=== PATIENT | female | born 1980 | race Caucasian/White ===

== ENCOUNTER → 2018-05-31 | Day surgery (SDC) | payer OTHER ==
[~2018-05-31] MED LIST: ABILIFY10 MG PO; AMPHETAMINE SAL20 MG PO; BYSTOLIC10 MG PO; CARBAMAZEPINE200 MG PO; FENTANYL CITRATE/PF 100MCG/2 ML INJ ONE; FLUOXETINE HCL20 MG PO; LAMOTRIGINE100 MG PO; LITHIUM CARBON300 M1 PO; MIDAZOLAM HCL 2 MG/2 ML VIAL ONE; NEXIUM OTC PO; PROPOFOL IV EMULSION 10 MG/ML 50 ML VIAL ONE; SERTRALINE HCL100 MG PO
[2018-05-31 19:05] LABS: WBC,FECAL (FECAL LACTOFERRIN) NEGATIVE (NEGATIVE)
--- NOTE | 2018-06-01 00:02 | Operative Report ---
DATE OF PROCEDURE: May 31, 2018 REFERRING PHYSICIAN: Dr. Shayne Lam. PROCEDURES PERFORMED 1. Esophagogastroduodenoscopy with biopsies and esophageal dilatation. 2. Colonoscopy with biopsies. INDICATIONS FOR ESOPHAGOGASTRODUODENOSCOPY: Dysphagia, heartburn, and indigestion. INDICATIONS FOR COLONOSCOPY: Lower abdominal pain, diarrhea, intermittent, chronic. MEDICATION: Patient was done under MAC. Please see anesthesiologist's note. PROCEDURE: With the patient in left lateral decubitus position, flexible fiberoptic Olympus gastroscope was introduced into the esophagus under direct visualization without any difficulty. There was some patchy erythema noted in distal esophagus. The esophagus was then dilated to size 52-Wolof Lim. The scope was then advanced with ease into the stomach traversing a small hiatal hernia. Mucosa overlying the antrum and the body revealed some patchy erythema and mild to moderate edema and biopsies were obtained and sent to stain for H. pylori. Several gastric hyperplastic-appearing polyps in the body of the stomach were noted and some were partially excised with cold biopsy forceps. Pylorus appeared to be of normal contour and shape. It was intubated with ease and the scope was advanced all the way to the 2nd portion of the duodenum. The scope was then withdrawn slowly and biopsies were obtained from the proximal 2nd portion to rule out sprue. Mucosa overlying the duodenal bulb appeared to be within normal limits. The scope was then withdrawn back into the stomach and retroflexed. Mucosa overlying the fundus appeared to be within normal limits. The cardia also appeared to be within normal limits. The scope was then straightened out. The stomach was decompressed. The scope was subsequently withdrawn. Patient tolerated the procedure well. IMPRESSIONS 1. Distal esophagitis, mild. 2. Esophagus dilated to size 52-Wolof Lim. 3. Small hiatal hernia. 4. Gastritis, biopsied. Biopsies sent to stain for Helicobacter pylori. 5. Gastric polyps, body, hyperplastic appearing, some partially excised with the cold biopsy forceps. 6. Rule out sprue. PLAN: Follow up histology. Initiate Protonix 40 mg 1 p.o. q.a.m. a.c. Patient was then turned around. After adequate lubrication of the anal canal, a flexible fiberoptic Olympus colonoscope was inserted into the rectum with ease and advanced all the way to the cecum. The mucosa overlying the cecum appeared to be within normal limits. The ileocecal valve was intubated and the scope was advanced into the terminal ileum. Biopsies were obtained. The scope was then withdrawn back into the colon. It was then withdrawn slowly. Mucosa overlying the ascending and the transverse appeared to be within normal limits. Mild inflammatory changes noted in the left colon. Multiple random biopsies were obtained. The scope was then retroflexed into the distal rectum and small internal hemorrhoids were noted, none of which was actively bleeding. The scope was then straightened out. The scope was subsequently withdrawn after securing an adequate stool specimen that was sent for the appropriate stool studies. Patient tolerated the procedure well. IMPRESSIONS 1. Colitis, mild, left sided. 2. Proctitis, mild. 3. Small internal hemorrhoids, none actively bleeding. PLAN 1. Follow up histology. 2. Follow up stool studies. 3. Initiate Vsl #3 one p.o. daily and Bentyl 10 mg 1 p.o. t.i.d. Job#: [id number] CF cc:SHAYNE LAM DO
[2018-06-01 14:19] LABS: C DIFFICILE TOXIN A&B AMP PROB NEGATIVE (NEGATIVE)
== END | disposition home or self-care (01) ==
LOC: OR 10:30
PROVIDERS: ATTEND Internal Medicine Gastroenterology
DX: K51.50 Left sided colitis without complications (principal); K31.7 Polyp of stomach and duodenum; K29.70 Gastritis, unspecified, without bleeding; K22.2 Esophageal obstruction; K20.9 Esophagitis, unspecified; K21.9 Gastro-esophageal reflux disease without esophagitis; K62.89 Other specified diseases of anus and rectum; K44.9 Diaphragmatic hernia without obstruction or gangrene; K64.8 Other hemorrhoids; I47.1 Supraventricular tachycardia; R06.83 Snoring; F98.8 Other specified behavioral and emotional disorders with onset usually occurring in childhood and adolescence; F31.9 Bipolar disorder, unspecified; Z88.8 Allergy status to other drugs, medicaments and biological substances; Z01.810 Encounter for preprocedural cardiovascular examination
CPT/HCPCS: 43239; 43450; 45380; 81025; 83630; 83993; 87045; 87177; 87328; 87493; 93005; J2250

== ENCOUNTER → 2021-02-01 | Day surgery (SDC) | payer BC ==
[2021-01-30 13:26] LABS: HEMATOCRIT 40.8 % (34.2-44.1); HEMOGLOBIN 13.6 g/dL (12.0-16.0)
[2021-01-30 13:50] LABS: ANION GAP 12.3 mmol/L (8-16); CALCIUM 8.9 mg/dL (8.4-10.2); CREATININE, SERUM 1.07 mg/dL (0.57-1.11); POTASSIUM 4.3 mmol/L (3.5-5.1)
[~2021-02-01] MED LIST changes: +ACETAMINOPHEN/CODEINE 300MG - 30MG TAB ONE; +ATIVAN1 MG PO; +BUPIVACAINE HCL 0.5% INJ 30 ML VIAL INJ ONE; +BUSPIRONE HCL5 MG PO; +CEFAZOLIN SOD 1 GM/NS 50ML 100 ML IV ONE; +DEXAMETHASONE SOD PHOS INJ 4 MG/ML VIAL ONE; +ESCITALOPRAM OX20 MG PO; +FERROUS SULFAT325 MG PO; +FLECAINIDE ACET50 MG PO; +GLYCOPYRROLATE INJ 0.2 MG/ML VIAL ONE; +HYDROMORPHONE 1MG/1ML INJ ONE; +KETOROLAC TROME10 MG PO; +LATUDA40 MG PO; +LIDOCAINE HCL 2% LOCAL INJ 5 ML SDV VIAL INJ ONE; +MEPERIDINE HCL INJ 25 MG/ML VIAL ONE; -MIDAZOLAM HCL 2 MG/2 ML VIAL ONE; +MUPIROCIN 2% OINT 22 GM TUBE ONE; +MYDAYIS ER 3737.5 MG PO; +ONDANSETRON HCL INJ 2MG/ML 2ML 2 MG/ML VIAL ONE; +ONDANSETRON ODT8 MG PO; +PRILOSEC OTC20 MG PO; +PROPOFOL IV EMULSION 10 MG/ML 20 ML VIAL ONE; -PROPOFOL IV EMULSION 10 MG/ML 50 ML VIAL ONE; +SEVOFLURANE INHAL SOLN 250 ML PEN BTL ONE; +TYLENOL # 31 EA PO
[2021-02-01 18:15] VITALS: BP 124/74
== END | disposition home or self-care (01) ==
LOC: OR 08:55
PROVIDERS: ATTEND Specialist
DX: S52.531A Colles' fracture of right radius, initial encounter for closed fracture (principal); K21.9 Gastro-esophageal reflux disease without esophagitis; D64.9 Anemia, unspecified; I49.3 Ventricular premature depolarization; F41.9 Anxiety disorder, unspecified; F31.9 Bipolar disorder, unspecified; V00.211A Fall from ice-skates, initial encounter; Y93.21 Activity, ice skating; Y99.8 Other external cause status; Z88.4 Allergy status to anesthetic agent; Z88.8 Allergy status to other drugs, medicaments and biological substances; Z01.810 Encounter for preprocedural cardiovascular examination; Z01.812 Encounter for preprocedural laboratory examination; Z20.822 Contact with and (suspected) exposure to COVID-19
CPT/HCPCS: 25608; 25671; 36415; 80048; 81025; 85014; 85018; 93005; C1713 ×6; J0690; J1100; J1170; J2001; J2175; J2405; J2704; J3010; U0002; 76000

== ENCOUNTER 2021-02-10 16:20 | Observation (INO) | payer BC ==
[~2021-02-10] VITALS: Ht 157.5 cm; Wt 96.4 kg
[~2021-02-10 16:20] MED LIST changes: -ACETAMINOPHEN/CODEINE 300MG - 30MG TAB ONE; -BUPIVACAINE HCL 0.5% INJ 30 ML VIAL INJ ONE; -CEFAZOLIN SOD 1 GM/NS 50ML 100 ML IV ONE; -DEXAMETHASONE SOD PHOS INJ 4 MG/ML VIAL ONE; -FENTANYL CITRATE/PF 100MCG/2 ML INJ ONE; -GLYCOPYRROLATE INJ 0.2 MG/ML VIAL ONE; -HYDROMORPHONE 1MG/1ML INJ ONE; -KETOROLAC TROME10 MG PO; -LIDOCAINE HCL 2% LOCAL INJ 5 ML SDV VIAL INJ ONE; -MEPERIDINE HCL INJ 25 MG/ML VIAL ONE; -MUPIROCIN 2% OINT 22 GM TUBE ONE; -ONDANSETRON HCL INJ 2MG/ML 2ML 2 MG/ML VIAL ONE; -PROPOFOL IV EMULSION 10 MG/ML 20 ML VIAL ONE; -SEVOFLURANE INHAL SOLN 250 ML PEN BTL ONE
[2021-02-10] MEDS ORDERED: MORPHINE SULFATE INJ 4 MG/ML INJ 1ML IV STA (16:33)
[2021-02-10] MEDS ORDERED: KETOROLAC TROME10 MG PO (17:47)
[2021-02-10] MEDS ORDERED: TYLENOL # 31 EA PO (17:47)
[2021-02-10] MEDS ORDERED: ONDANSETRON HCL INJ 2MG/ML 2ML 2 MG/ML VIAL IV PRN (18:45)
[2021-02-10 20:40] VITALS: BP 106/65
[2021-02-10] MEDS: MORPHINE SULFATE INJ 4 MG/ML INJ 1ML IV PRN (21:17)
[2021-02-10 22:00] VITALS: BP 105/75
[2021-02-11] VITALS: BP 95/59
[2021-02-11] MEDS ORDERED: DEXTROSE 50% SYRINGE 50 ML IV PRN (01:00)
[2021-02-11] MEDS ORDERED: DOCUSATE SODIUM 100 MG CAP PO PRN (01:00)
[2021-02-11] MEDS ORDERED: HYDRALAZINE HCL 20 MG/ML VIAL IV PRN (01:00)
[2021-02-11] MEDS ORDERED: POLYETHYLENE GLYCOL 3350 17 GM PACK PO PRN (01:00)
[2021-02-11] MEDS ORDERED: MELATONIN 5 MG TABLET PO PRN (01:00)
[2021-02-11] MEDS ORDERED: HYDROCODONE/APAP 5MG-325MG TAB PO PRN (01:00)
[2021-02-11] MEDS ORDERED: BENZONATATE 100 MG CAP PO PRN (01:00)
[2021-02-11] MEDS ORDERED: ACETAMINOPHEN 325 MG TAB PO PRN (01:00)
[2021-02-11] MEDS ORDERED: POTASSIUM CHLORIDE 20 MEQ TAB CR PO PRN (01:00)
[2021-02-11] MEDS ORDERED: DIPHENHYDRAMINE HCL 25 MG CAP PO PRN (01:00)
[2021-02-11] MEDS ORDERED: LIDOCAINE 4% PATCH TP PRN (01:00)
[2021-02-11] MEDS: MORPHINE SULFATE INJ 4 MG/ML INJ 1ML IV PRN ×3 (03:53→16:19)
[2021-02-11 04:00] VITALS: BP 110/75
[2021-02-11] MEDS: ONDANSETRON HCL INJ 2MG/ML 2ML 2 MG/ML VIAL IV PRN ×3 (04:35→16:19)
[2021-02-11 05:12] LABS: BASOPHILS % 0.5 % (0.0-1.0); EOSINOPHILS # (AUTO) 0.1 (0.0-0.4); EOSINOPHILS % 0.9 % (0.0-6.0); HEMATOCRIT 38.4 % (34.2-44.1); HEMOGLOBIN 12.8 g/dL (12.0-16.0); LYMPHOCYTES # (AUTO) 2.7 (1.0-3.2); LYMPHOCYTES % 36.1 % (18.0-39.1); MEAN CORPUSCULAR HEMOGLOBIN 31.1 pg (28-32); MEAN CORPUSCULAR HGB CONC 33.3 g/dL (31-35); MEAN CORPUSCULAR VOLUME 93.2 fL (81-99); MONOCYTES # (AUTO) 0.7 (0.2-0.8); MONOCYTES % 9.5 % (4.4-11.3); NEUTROPHILS % 52.7 % (38.7-80.0); PLATELET COUNT 243 x10e3/uL (140-360); RED BLOOD COUNT 4.12 x10e6/uL (3.6-5.1); RED CELL DISTRIBUTION WIDTH 12.4 % (11.7-14.4)
[2021-02-11 05:28] LABS: ANION GAP 11.1 mmol/L (8-16); BLOOD UREA NITROGEN 13 mg/dL (7-26); BUN/CREATININE RATIO 16 (6-25); CALCIUM 8.3 mg/dL (8.4-10.2); CARBON DIOXIDE 26 mmol/L (22-29); CHLORIDE 106 mmol/L (98-107); CREATININE, SERUM 0.82 mg/dL (0.57-1.11); EST GLOMERULAR FILTRATION RATE > 60 ML/MIN (60-); GLUCOSE 100 mg/dL (74-118); POTASSIUM 4.1 mmol/L (3.5-5.1); SODIUM 139 mmol/L (136-145)
[2021-02-11 07:30] VITALS: BP 107/62
[2021-02-11] MEDS ORDERED: PANTOPRAZOLE SOD 40 MG TABEC PO SCH (07:30)
[2021-02-11] MEDS: BUSPIRONE HCL 5 MG TAB PO SCH ×2 (08:02→16:19)
[2021-02-11 09:00] VITALS: BP 107/62
[2021-02-11] MEDS ORDERED: LAMOTRIGINE 100 MG TAB PO SCH (09:00)
[2021-02-11] MEDS ORDERED: ESCITALOPRAM OXALATE PO SCH (09:00)
[2021-02-11] MEDS ORDERED: LURASIDONE HCL PO SCH (09:00)
[2021-02-11] MEDS ORDERED: NEBIVOLOL 10 MG TAB PO SCH (09:00)
[2021-02-11] MEDS ORDERED: OMEPRAZOLE 20 MG CAP PO SCH (09:15)
[2021-02-11] MEDS ORDERED: ESCITALOPRAM OXALATE 10 MG TAB PO SCH (10:00)
[2021-02-11 11:48] VITALS: BP 107/67
[2021-02-11 16:00] VITALS: BP 103/55
[2021-02-11] MEDS ORDERED: FLECAINIDE ACETATE 100 MG TAB PO SCH (21:00)
== END 2021-02-11 18:25 | disposition home or self-care (01) ==
LOC: ER 16:31 → ERHOLD 20:50 → MED/SURG 20:52
PROVIDERS: ADMIT Internal Medicine; ATTEND Internal Medicine
DX: T84.84XA Pain due to internal orthopedic prosthetic devices, implants and grafts, initial encounter (principal); Z20.822 Contact with and (suspected) exposure to COVID-19; F32.9 Major depressive disorder, single episode, unspecified
CPT/HCPCS: 26320; 36415; 73090; 80048; 85025; 99284; G0378 ×2; J2270 ×2; J2405; S0164; U0002

== ENCOUNTER → 2021-05-10 | Outpatient (RCR) | payer BC ==
[~2021-05-10] MED LIST changes: +KETOROLAC TROME10 MG PO
== END ==
LOC: OT 04-18 13:49
PROVIDERS: ATTEND Specialist
DX: S52.531D Colles' fracture of right radius, subsequent encounter for closed fracture with routine healing (principal)

== ENCOUNTER 2021-06-08 10:53 | Outpatient (RCR) | payer BC | END 2021-06-10 | LOC: OT 10:53 | PROVIDERS: ATTEND Specialist | DX: S52.531D Colles' fracture of right radius, subsequent encounter for closed fracture with routine healing (principal) ==

== ENCOUNTER 2021-07-10 16:00 | Outpatient (RCR) | payer BC | END 2021-07-11 | LOC: OT 16:00 | PROVIDERS: ATTEND Specialist | DX: S52.531D Colles' fracture of right radius, subsequent encounter for closed fracture with routine healing (principal) ==

== ENCOUNTER 2021-07-12 16:03 | Outpatient (RCR) | payer BC | END 2021-08-10 | LOC: OT 16:03 | PROVIDERS: ATTEND Specialist | DX: S52.531D Colles' fracture of right radius, subsequent encounter for closed fracture with routine healing (principal) ==

== ENCOUNTER 2022-03-21 18:06 | Emergency (ER) | payer BC ==
[~2022-03-21] VITALS: Ht 157.5 cm; Wt 113.4 kg
[2022-03-21] MEDS ORDERED: SODIUM CHLORIDE 0.9% 1000ML 1,000 ML IV STA (18:23)
[2022-03-21] MEDS ORDERED: FAMOTIDINE 20 MG/2 ML VIAL IV ONE (18:30)
[2022-03-21] MEDS ORDERED: ONDANSETRON HCL INJ 2MG/ML 2ML 2 MG/ML VIAL IV ONE (18:30)
[2022-03-21] MEDS ORDERED: SODIUM CHLORIDE 0.9% 1000ML 1,000 ML ONE (18:38)
[2022-03-21] MEDS ORDERED: IOPAMIDOL 370 MG/ML 100 ML INFUS..BTL INJ ONE (19:07)
[2022-03-21] MEDS ORDERED: ACETAMINOPHEN-1 EAC4 PO (19:21)
[2022-03-21] MEDS ORDERED: ONDANSETRON ODT4 MG PO (19:21)
== END 2022-03-21 21:04 | disposition home or self-care (01) ==
LOC: FSED 18:14
DX: R10.31 Right lower quadrant pain (principal); R11.2 Nausea with vomiting, unspecified; R16.0 Hepatomegaly, not elsewhere classified; K21.9 Gastro-esophageal reflux disease without esophagitis; F32.A Depression, unspecified
CPT/HCPCS: 74177; 80053; 81003; 81025; 85025; 96374; 96376; 99284; J2405; J7030; Q9967

== ENCOUNTER 2023-01-30 15:37 | Emergency (ER) | payer BC, OTHER ==
[~2023-01-30] VITALS: Ht 157.5 cm; Wt 113.9 kg
[~2023-01-30 15:37] MED LIST changes: +ACETAMINOPHEN-1 EAC4 PO; +ONDANSETRON ODT4 MG PO
[2023-01-30] MEDS ORDERED: STRATTERA60 MG (16:00)
[2023-01-30] MEDS ORDERED: QUETIAPINE FUM100 MG PO (16:00)
[2023-01-30] MEDS ORDERED: VENLAFAXINE HCL75 MG PO (16:00)
[2023-01-30] MEDS ORDERED: ACETAMINOPHEN 325 MG TAB PO ONE (18:15)
[2023-01-30] MEDS ORDERED: ACETAMINOPHEN 325 MG TAB ONE (18:22)
== END 2023-01-30 18:32 | disposition home or self-care (01) ==
LOC: FSED 15:45
DX: R51.9 Headache, unspecified (principal); I10 Essential (primary) hypertension; M25.511 Pain in right shoulder; K21.9 Gastro-esophageal reflux disease without esophagitis; F41.9 Anxiety disorder, unspecified; F32.A Depression, unspecified
CPT/HCPCS: 70450; 71046; 80053; 80307; 81003; 82553; 84484; 85025; 93005; 99284